=== PATIENT | female | born 2005 | race Caucasian/White ===

== ENCOUNTER 2025-04-26 06:13 | Outpatient (REF) | payer OTHER, SELFPAY ==
--- NOTE | ~2025-04-26 | US_ITS ---
EXAMINATION: US EXTRACRANIAL CAROTID DUPLEX, BILATERAL CLINICAL INFORMATION: TIA COMPARISON: None available. TECHNIQUE: Real-time ultrasound and Doppler techniques (integrating B-mode 2-D vascular images, Doppler spectral analysis and color-flow Doppler imaging) were utilized to interrogate the extracranial carotid arteries, the vertebral arteries and proximal subclavian arteries bilaterally. The degree of stenosis is determined by criteria similar to NASCET. FINDINGS: Right Side: 1. There is no atherosclerotic plaque seen in the bifurcation/proximal ICA region. 2. The common carotid artery PSV proximally is 99 cm/s and distally a 6 cm/s. 3. The proximal internal carotid artery velocities are 84 cm/s systolic and 33 cm/s diastolic. 4. The proximal external carotid artery PSV is 94 cm/s. 5. The vertebral artery shows antegrade flow. 6. The subclavian artery waveforms are triphasic. ICA/CC ratio: 0.85. Ancillary findings: 1.9 cm prominent right lymph node. Left Side: 1. There is no atherosclerotic plaque seen in the bifurcation/proximal ICA region. 2. The common carotid artery PSV proximally is 103 cm/s and distally 96 cm/s. 3. The proximal internal carotid artery velocities are 86 cm/s systolic and 38 cm/s diastolic. 4. The proximal external carotid artery PSV is 113 cm/s. 5. The vertebral artery shows antegrade flow. 6. The subclavian artery waveforms are triphasic. ICA/CC ratio: 0.83. US/US carotid duplex BI IMPRESSION: 1. RIGHT: No hemodynamically significant stenosis by ultrasound criteria. Normal. 2. LEFT: No hemodynamically significant stenosis by ultrasound criteria. Normal. Electronically signed by: David Sky MD 04/26/2025 01:44 PM EDT
--- OUTSIDE RECORDS SUMMARY | 2025-04-26 06:16 | XMS_ITS | Encounter Summary ---
Author Organization [facility] Address [address] [place] [address] Phone Care Team Providers Care Plumber Assistant Name Role Phone Joann Downing MD Primary Care Provider Reason for Referral * MRI/CAT Scan - Authorized Specialty Diagnoses / Procedures Referred By Contac t Referred To Contact Radiology Diagnoses Transient cerebral ischemia, unspecified type Procedures MRI Angio Brain Matt Wilson MD [address] [place] [address] Phone: tel: fax: mailto: Referral ID Status Reason Start Date Expiration Date V isits Requested Visits Authorized [id number] Authorized 04/14/2025 04/14/2026 1 1 * MRI/CAT Scan - Authorized Specialty Diagnoses / Procedures Referred By Contac t Referred To Contact Radiology Diagnoses Transient cerebral ischemia, unspecified type Procedures MRI Brain Matt Wilson MD [address] [place] [address] Phone: tel: fax: mailto: Referral ID Status Reason Start Date Expiration Date V isits Requested Visits Authorized [id number] Authorized 04/14/2025 04/14/2026 1 1 Encounter Details Date Type Department Care Team (Late st Contact Info) Description 04/14/2025 Transcribe Orders Virtual Department [address] [place] [phone] Matt Wilson MD [address] [place] [address] Transient cerebral ischemia, unspecified type (Primary Dx) Social History Tobacco Use Types Packs/Day Years Used Date Smoking Tobacco: Never Alcohol Use Standard Drinks/Week Comments Never 0 (1 standard drink = 0.6 oz pur e alcohol) Education Answer Date Recorded Are you interested in more education? Not on gilma e 12/22/2022 Are you concerned about learning? Not on file 12/22/2022 No 12/22/2022 No 12/22/2022 Digital Access Answer Date Recorded No 01/05/2023 No 01/05/2023 No 01/05/2023 Reliable internet access at home? Not on file 01/05/2023 Device with a working camera? Not on file Comments Unknown Sex and Gender Information Value Date Recorded Sex Assigned at Female 11/14/2022 7:47 PM EDT Legal Sex Female 6:10 PM EST Gender Identity Female 11/14/2022 7:47 PM EDT Sexual Orientation Not on file documented as of this encounter Plan of Treatment Upcoming Encounters Date Type Department Care Team (Late Contact Info) Description 04/14/2025 Procedure Pass [address] [address] 04/14/2025 Procedure Pass [address] [address] 05/15/2025 5:30 PM EDT Appointment [address] [address] Matt Wilson MD [address] [place] [address] [email or web address] Scheduled Orders Name Type Priority Associated Diagnoses Orde r Schedule MRI Brain Imaging Routine Transient cerebral ischemia, unspecified type Expected: 04/14/2025, Expires: 04/14/2026 MRI Angio Brain Imaging Routine Transient cerebral ischemia, unspecified type Expected: 04/14/2025, Expires: 04/14/2026 documented as of this encounter Visit Diagnoses Diagnosis Transient cerebral ischemia, unspecified type- Primary documented in this encounter Care Teams Plumber Assistant Relationship Specialty Start Date End Date Joann Downing MD PCP - General Pediatrics 11/14/22 documented as of this encounter Additional Source Comments The information contained in this document represents components of the legal health record. It is not the complete legal health record.[facility]
--- OUTSIDE RECORDS SUMMARY | 2025-04-26 06:16 | XMS_ITS | Encounter Summary ---
[facility] Organization [facility] Address [address] [place] [address] Phone Care Team Providers Care Frontend Engineer Name Role Phone Joann Downing MD Primary Care Provider [phone] Leonard Segal MD Unavailable Joann Downing MD Unavailable Joann Downing MD Unavailable [phone] Encounter Details Date Type Department Care Team (Late st Contact Info) Description 03/11/2024 Orders Only [facility] [address] [place] [address] Darin Alberts MD [address] [address] Hemifacial microsomia (Primary Dx) Social History Tobacco Use Types Packs/Day Years Used Date Smoking Tobacco: Never Assessed Comments Unknown Sex and Gender Information Value Date Recorded Sex Assigned at Not on file Legal Sex Female 5:43 PM EDT Gender Identity Not on file Sexual Orientation Not on file documented as of this encounter Plan of Treatment Upcoming Encounters Date Type Department Care Team (Late st Contact Info) Description 05/11/2025 5:00 PM EDT Office Visit [facility] Orthodontics Department 2 [facility] [address] [place] [phone] Enrike Martinez, GENNY [address] [place] [address] 07/22/2112 Hospital Encounter [facility] [address] [place] [address] Darin Alberts MD 300 [facility] 1 [place] [address] Scheduled Procedures Name Priority Associated Diagnoses Date/Ti me FAT GRAFTING, LIPOSUCTION Hemifacial microsomia INJECTION OF INTRALESIONAL STEROIDS Hemifacial microsomia documented as of this encounter Visit Diagnoses Diagnosis 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
--- OUTSIDE RECORDS SUMMARY | 2025-04-26 06:16 | XMS_ITS | Clinical Summary ---
Author Organization [facility] Address [address] [place] [address] Phone Care Team Providers Care Electronics Tech Name Role Phone Joann Downing MD Primary Care Provider [phone] Leonard Segal MD Unavailable Joann Downing MD Unavailable [phone] Joann Downing MD Unavailable [phone] Allergies No known active allergies Active Problems Problem Noted Date Diagnosed Date Hemifacial microsomia 03/11/2024 Encounters Date Type Department Care Team Description 03/23/2025 5:30 PM EDT Office Visit [facility] Orthodontics Department [address] [phone] Enrike Martinez DDS Malocclusion (Primary Dx) 03/23/2025 Travel 02/09/2025 5:30 PM EDT Office Visit [facility] Orthodontics Department [address] [phone] Enrike Martinez DDS Hemifacial microsomia (Primary Dx) 02/09/2025 Travel from Last 3 Months Immunizations Immunization Administration Dates Next Due Influenza, Unspecified 06/13/2016,05/11/2016 Pfizer Purple Cap SARS-CoV-2 12/21/2020,12/01/19 21 Social History Tobacco Use Types Packs/Day Years Used Date Smoking Tobacco: Never Assessed Comments Unknown Sex and Gender Information Value Date Recorded Sex Assigned at Not on file Legal Sex Female 5:43 PM EDT Gender Identity Not on file Sexual Orientation Not on file Last Filed Vital Signs Vital Sign Reading Time Taken Comments Blood Pressure 114/78 07/02/2022 12:15 PM EST Pulse 80 07/02/2022 12:15 PM EST Temperature 36.7 C (98.1 F) 05/28/2021 9:13 AM EDT Respiratory Rate 17 07/02/2022 12:1 5 PM EST Oxygen Saturation 98% 07/02/2022 12: 15 PM EST Inhaled Oxygen Concentration - - Weight 58.8 kg (129 lb 10.1 oz) 024 10:31 AM EDT Height 153 cm (5' 0.24 ) 03/02/2024 10: 31 AM EDT Body Mass Index 25.12 03/02/2024 10:31 AM EDT Plan of Treatment Upcoming Encounters Date Type Department Care Team (Late st Contact Info) Description 05/11/2025 5:00 PM EDT Office Visit [facility] Orthodontics Department 2 [facility] [address] [place] [address] Enrike Martinez, GENNY [address] [place] [address] 07/22/2112 Hospital Encounter [facility] [address] [place] [address] Darin Alberts MD 300 [facility] 1 [place] [address] Scheduled Procedures Name Priority Associated Diagnoses Date/Ti me FAT GRAFTING, LIPOSUCTION Hemifacial microsomia INJECTION OF INTRALESIONAL STEROIDS Hemifacial microsomia Health Maintenance Due Date Last Done Comments HIV Screening 2004 Varicella Vaccines (1 of 2 - 13+ 2-dose series) 02/28/2017 Hepatitis C Screening 02/28/2022 Meningococcal B Vaccine (2 of 2 - Trumenba SCDM 2-dose series) 09/20/2022 03/20/2022 Influenza Vaccine (#1) 2025 0, 05/27/2020, 05/14/2018, Additional history exists DTaP/Tdap/Td Vaccines (4 - Td or Tdap) 05/14/2031 05/14/2021, 05/01/2015, 11/11/2005 Hepatitis B Vaccines Completed 2004, 2004, 2004 Pneumococcal Vaccine: Pediatrics (0 to 5 Years) and At-Risk Patients (6 to 49 Years) Aged Out 03/01/2005, 2004, 2004, Additional history exists No longer eligible based on patient's age to complete this topic HIB Vaccines Completed 11/11/2005, 08/12, 2004, Additional history exists MMR Vaccines Completed 03/02/2009, 07/05/2005 HPV Vaccines Completed 06/03/2017, 06/13/2016 Hepatitis A Vaccines Completed 03/29/2020, 05/14/20 18 Meningococcal Vaccine Completed 03/29/2020, 015 IPV Vaccines Aged Out No longer eligi ble based on patient's age to complete this topic Rotavirus Vaccines Aged Out No longer eligible based on patient's age to complete this topic Medical Devices Implanted Type Area Round Kiln Drawer Device Identifier Shelf Expiration Date Model / Serial / Lot Omnipore Surgical Implant Implanted:Qty : 1 on 05/22/2021 by Davonte Mejia MD, JESUS Implant Right: Mandible [id number] / / [id number] Omnipore Surgical Implant Implanted:Qty : 1 on 05/22/2021 by Davonte Mejia MD, JESUS Implant Right: Mandible [id number] / / [id number] Screw Bn [id number] Matrix Ti Slftp Pitch Crs Implanted:Qty : 3 on 05/22/2021 by Davonte Mejia MD, JESUS Implant Right: Mandible / / n/a Oculid [place] Slim 0.8g Implanted:Qty : 1 on 03/06/2022 by Davonte Mejia MD, JESUS Implant Right: Eyelid [id number] / / [id number] Tissue Refrigeration Lead 3x6cm 3.5cm Projection Implanted:Qty : 1 on 03/06/2022 by Davonte Mejia MD, JESUS Implant Not Specified [id number]-0 4I / / [id number] Omnipore Custom Facial Implant Implanted:Qty : 1 on 07/02/2022 by Darin Alberts MD Implant Right: Face 05/11/2027 [id number] / / [id number] Screw Matrix 1.85x8mm Self-Drill Ti Dk Prpl Synthes Implanted:Qty : 4 on 05/22/2021 by Davonte Mejia MD, DMD Screw Right: Mandible / / n/a Screw Matrix 1.56v84hh Self-Tap Ti Lt Blue Coarse Pitch Synthes Implanted:Qty : 1 on 07/02/2022 by Darin Alberts MD Screw Mandible / / N/A Screw Matrix [id number] Self-Tap Ti Lt Blue Coarse Pitch Synthes Implanted:Qty : 1 on 07/02/2022 by Darin Alberts MD Screw Mandible / / N/A Screw Matrix [id number] Self-Tap Ti Lt Blue Coarse Pitch Synthes Implanted:Qty : 1 on 07/02/2022 by Darin Alberts MD Screw Mandible / / N/A Alloderm Med 4 X 12cm Implanted:Qty : 1 on 07/02/2022 by Darin Alberts MD Skin Substitute Right: Face 11/09/2023 [id number] / / [id number] Insurance [facility] CIGNA CIG [facility] Care Teams Electronics Tech Relationship Specialty Start Date End Date Joann Downing MD [address] [place] [id number] PCP - General 04 Leonard Segal MD 1 [facility] [place] [address] [place] [address] PCP - Insurance PCP 01/10/22 Joann Downing MD 7 [place], [place] [phone] PCP - Clinical PCP 12/10/10 Joann Downing MD 7 [place] [address] HC Outside Jute Bag Cutting Machine Operator 01/10/24
--- OUTSIDE RECORDS SUMMARY | 2025-04-26 06:16 | XMS_ITS | Clinical Summary ---
Author Organization [facility] Address [address] [address] Phone Care Team Providers Care Heritage Consultant Name Role Phone Joann Downing MD Primary Care Provider Allergies Active Allergy Reactions Criticality Noted Date Comments Nickel 11/14/2022 Medications No known medications Encounters Date Type Department Care Team Description 04/14/2025 Transcribe Orders Virtual Department [address] [place] [phone] Matt Wilson MD Transient cerebral ischemia, unspecified type (Primary Dx) from Last 3 Months Social History Tobacco Use Types Packs/Day Years Used Date Smoking Tobacco: Never Tobacco Cessation:Counseling Given: Not Answered Alcohol Use Standard Drinks/Week Comments Never 0 [...] PM EDT Sexual Orientation Not on file Last Filed Vital Signs Vital Sign Reading Time Taken Comments Blood Pressure 103/68 05/30/2024 2:53 PM EDT Pulse 52 05/30/2024 2:53 PM EDT Temperature 36.8 C (98.2 F) 05/30/2024 2:53 PM EDT Respiratory Rate 19 05/30/2024 2:53 PM EDT Oxygen Saturation 97% 11/15/2022 3:26 AM EDT Inhaled Oxygen Concentration - - Weight 55.8 kg (123 lb) 05/30/2024 2:53 PM EDT Height 152.4 cm (5') 05/30/2024 2:53 PM EDT Body Mass Index 24.02 05/30/2024 2:53 PM EDT Plan of Treatment Upcoming Encounters Date Type Department Care Team (Late st Contact Info) Description 04/14/2025 Procedure Pass [address] [address] 04/14/2025 Procedure Pass [address] [address] 05/15/2025 5:30 PM EDT Appointment [address] [address] Matt Wilson MD [address] [place] [address] Health Maintenance Due Date Last Done Comments DEPRESSION SCREENING 2016 SMOKING Hx and SMOKELESS TOBACCO SCREENING 02/28/2017 CHLAMYDIA SCREENING 2020 ADOLESCENT UNIVERSAL LIPID SCREENING 02/28/2021 HEPATITIS C SCREENING 02/28/2022 HIV ONE-TIME SCREENING (18-65 YEARS) 02/28/2022 MENINGOCOCCAL VACCINES (B) (2 of 2 - Trumenba SCDM 2-dose series) 09/20/2022 03/20/2022 PAP SMEAR 02/28/2025 INFLUENZA VACCINE (#1) 2025 0, 05/27/2020, 05/14/2018, Additional history exists COVID-19 VACCINE ( season) 2025 01/19/2022, 12/21/2020, 11/30/2020 Adult Td,Tdap Booster 05/14/2031 05/14/2021, 015 COMBINED DTaP,Tdap,Td (4 - Td or Tdap) 05/14/2031 05/14/2021, 05/01/2015, 11/11/2005 PNEUMOCOCCAL VACCINES (0-49 years) Aged Out 03/01/2005, 2004, 2004, Additional history exists No longer eligible based on patient's age to complete this topic HIB VACCINES Completed 11/11/2005, 08/12, 2004, Additional history exists MMR VACCINES Completed 03/02/2009, 07/05/2005 HPV VACCINES Completed 06/03/2017, 06/13/2016 HEPATITIS A VACCINES Completed 03/29/2020, 05/14/20 18 MENINGOCOCCAL VACCINES (ACWY) Completed 03/29/2020, 05/01/2015 Medical Devices Not on file Insurance [facility] [place] [facility] [place] [facility] [place] [facility] PPO [facility] PPO Care Teams Heritage Consultant Relationship Specialty Start Date End Date Joann Downing MD PCP - General Pediatrics 11/14/22 Additional Source Comments The information contained in this document represents components of the legal health record. It is not the complete legal health record.[facility]
== END 2025-04-26 06:14 | disposition home or self-care (01) ==
LOC: HO.UMASIMG 06:13
PROVIDERS: Visit Provider Family Medicine
DX: G45.9 Transient cerebral ischemic attack, unspecified (principal)
CPT/HCPCS: 93880

== ENCOUNTER → 2025-04-26 13:00 | Outpatient (BNV) | payer OTHER, SELFPAY | PROVIDERS: Visit Provider Radiology Diagnostic Radiology | DX: G45.9 Transient cerebral ischemic attack, unspecified (principal) | CPT/HCPCS: 93880 ==